=== PATIENT | female | born 1965 | race Caucasian/White ===

== ENCOUNTER 2023-12-18 14:03 | Outpatient (REF) | payer OTHER, SELFPAY ==
--- NOTE | ~2023-12-18 | MR_ITS ---
EXAMINATION: MRI FEMUR WITHOUT CONTRAST, RIGHT CLINICAL INFORMATION: Localized swelling mass and lump, pain. Patient reports thigh pain with lump getting better. Lump size of a pea. Symptoms since July 2023. Patient reports pain, history of injury. Patient reports ultrasound at [facility]. COMPARISON: No priors available for comparison. TECHNIQUE: MRI of the right thigh without contrast. Patient refused contrast imaging. FINDINGS: Soft tissue marker positioned posterior to the proximal thigh at the level of the proximal femoral shaft. Underlying the skin marker, is fatty signal in the underlying subcutaneous tissue. No abnormal signal, mass or fluid collection is identified in the underlying subcutaneous tissues, soft tissues or muscle. There is increased signal in the common hamstring tendon origin which could reflect mild tendinosis/deep surface partial tear. The muscles of the thigh otherwise appear unremarkable without evidence of significant edema or tear. The muscles and tendons around the hip and the pelvis are obscured by artifact, not well evaluated. Artifact and inhomogeneous fat saturation limits evaluation of the proximal femur and the pelvis. In the visualized femoral shaft, there is no abnormal edema, fracture or suspicious marrow signal changes identified. No groin lymphadenopathy seen. Partially visualized urinary bladder appears unremarkable. On the coronal sequence of the femurs, there is normal-appearing T1 signal in the left femoral shaft. MR/MR femur RT wo con IMPRESSION: In the area of the soft tissue marker along the posterior aspect of the proximal femur, there is normal signal in the subcutaneous fatty tissue. No abnormal signal, mass or fluid collection is identified in the subcutaneous tissue, soft tissues, muscles. Etiology of the palpable mass has not been identified on the noncontrast study. Clinically correlate. Follow-up imaging for reassessment as clinically warranted. Right common hamstring tendinosis/partial tear. Additional findings and details as above.
== END 2023-12-18 14:04 | disposition home or self-care (01) ==
LOC: HO.MRI 14:03
PROVIDERS: PCP Student in an Organized Health Care Education/Training Program; Visit Provider Student in an Organized Health Care Education/Training Program
DX: R22.41 Localized swelling, mass and lump, right lower limb (principal)
CPT/HCPCS: 73718

== ENCOUNTER 2025-05-17 15:26 | Outpatient (AMB) | payer OTHER, SELFPAY ==
--- NOTE | 2025-05-17 15:33 | A.OFFVIS_ITS ---
Vital Signs 05/17/25 15:40 Height 5 ft 3 in Weight 164 lb BMI 29.0 BP 136/84 Blood Pressure Location Rt brachial Position Sitting Pulse 80 Pulse Source Pulse Oximeter Pulse Oximetry (%) 96 Oxygen Delivery Method Room Air Intake Visit Reasons: Colonoscopy Screening Intake Note: New pt for recall colo screening. Has cardiac hx. CC: Pt reports her last colo was performed in [place] ~ 4 years ago. Pt states that she had previously experienced some difficulties with constipation and hemorrhoids. Pt has been making dietary and lifestyle changes and incorporating fiber which she states has helped. Pt does still have some concern pertaining to the hemorrhoids however as they still bother her intermittently. Accompanied by: Self / Same As Patient Allergies adhesive Allergy (Unknown, Verified 05/06/25 14:43) Rash hydrochlorothiazide Allergy (Unknown, Verified 05/06/25 14:43) Rash Opioids - Morphine Analogues Adverse Reaction (Unknown, Verified 05/06/25 14:43) Vomiting HPI HPI Colonoscopy Screening: Details: 59 year old? female with past medical history of palpitations, hyperlipidemia, hypertension, asthma is here today for pre colonoscopy screening.? Patient was sent to us by her PCP.? Last colonoscopy was in 2020.? Patient denies any gastrointestinal symptoms in the past or at present.? However she does report history of constipation and hemorrhoids. Doing better with fiber. Denies any family history of CRC.? Denies history of difficulty with sedation or anesthesia in the past.? Negative for history of sleep apnea.? Denies any history of renal, pulmonary, or hepatic disease.??Patient reports that she had history of palpitation and was seen Cardiology. Patient reports that she had normal stress test. No history of infectious? diseases like hepatitis A, B, C, HIV or tuberculosis.? Patient is not on any anticoagulation [facility] Medical History (Updated 05/06/25 @ 14:47 by LEVY Cline) Diverticulum of renal calyx HLD (hyperlipidemia) HTN (hypertension) Palpitations Scoliosis Asthma Surgical History (Updated 05/17/25 @ 15:41 by LEVY Cline) H/O colonoscopy Hx of atrioventricular node ablation History of colposcopy History of ankle surgery delivery delivered Family History (Updated 05/06/25 @ 14:50 by LEVY Cline) Son ADHD Mother Parkinson disease Breast cancer Maternal Grandfather Diabetes Heart disease Father HTN (hypertension) Physical Exam Vital Signs: Last Vital Signs Pulse 80 05/17/25 15:40 BP 136/84 05/17/25 15:40 Pulse Ox 96 05/17/25 15:40 Oxygen Delivery Method Room Air 05/17/25 15:40 BMI result Body Mass Index 29.0 Assessment & Plan Assessment & Plan (1) Screen for colon cancer: Code(s): Z12.11 - Encounter for screening for malignant neoplasm of colon Plan Patient denies any GI, cardiac or respiratory symptoms.? History of constipation and hemorrhoids in the past. Taking fiber daily, no issues currently. Denies any issues with anesthesia in the past.? Denies any history of sleep apnea.? No history infectious diseases in the past or present.? Not on any anticoagulation therapy.? Patient denies any cardiac symptoms however she has seen Cardiology in the past. Had normal stress test. 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 No family history of colon cancer.? Patient denies melena, hematochezia, unintentional weight loss or ribbon like stools.? Discussed at length the pre-procedure,? prep, diet & medications as well as what to expect prior, during and after the procedure.?? Stressed the importance of good bowel prep.? Recommended the use of Vaseline or Calmoseptine OTC & baby wipes with bowel movements to promote comfort.? ?Patient verbalizes understanding and agrees to plan of care.? She was given the opportunity to ask questions and all questions answered.? We will see her after the procedure.? Orders: Referrals GI Procedure Notification Z12.11 - Encounter for screening for malignant neoplasm of colon Medications: New polyethylene glycol 3350 (Miralax) As directed by gastroenterology department at [facility] 238 grams PO ONCE 238 grams 0RF Z12.11 - Encounter for screening for malignant neoplasm of colon bisacodyl (Dulcolax (bisacodyl)) take 4 tabs at noon the day before your colonoscopy 20 mg (4 x 5 mg) PO ONCE 4 tabs 0RF constipation 1 day Z12.11 - Encounter for screening for malignant neoplasm of colon Coding Level of Care Code New Pt Level 3 (56098) Diagnoses Screen for colon cancer Z12.11 Time Spent (min) 40 Comment 30 minutes spent with patient and additional 10 minutes spent reviewing her records
[2025-05-17 15:40] VITALS: BP 136/84; PULSE 80; O2SAT 96; BMI 29.0
--- OUTSIDE RECORDS SUMMARY | 2025-05-17 20:36 | XMS_ITS | Encounter Summary ---
Author Organization [facility] Address [address] [place] [address] Care Team Providers Care Hardwood Floor Layer Name Role Phone Teresita Yi Primary Care Provider [phone] Encounter Details Date Type Department Care Team (Late st Contact Info) Description 03/14/2025 Results Follow-Up [facility] [address] [place] [id number] Mixing Tank Operator: Ilene Sparks NP [address] [place] [phone] Social History Tobacco Use Types Packs/Day Years Used Date Smoking Tobacco: Never Smokeless Tobacco: Never Alcohol Use Standard Drinks/Week Comments Yes 0 (1 standard drink = 0.6 oz pur e alcohol) Comments Unknown Sex and Gender Information Value Date Recorded Sex Assigned at Female 12/10/2024 10:06 AM EDT Legal Sex Female 12:32 PM EDT Gender Identity Female 12/10/2024 10:06 AM EDT Sexual Orientation Straight 03/14/2025 8: 25 AM EDT documented as of this encounter Plan of Treatment Upcoming Encounters Date Type Department Care Team (Late st Contact Info) Description 06/27/2025 4:00 PM EST Follow-Up [facility] [address] [place] [id number] Mixing Tank Operator: Ilene Sparks NP [address] [place] [address] documented as of this encounter Visit Diagnoses Not on filedocumented in this encounter Care Teams Hardwood Floor Layer Relationship Specialty Start Date End Date Teresita Yi [address] [place] [id number] PCP - General 12/10/24 documented as of this encounter
--- OUTSIDE RECORDS SUMMARY | 2025-05-17 20:36 | XMS_ITS | Clinical Summary ---
Author Organization [facility] Address [address] [place] [address] Care Team Providers Care Field Map Editor Name Role Phone Teresita Yi Primary Care Provider [phone] Allergies Active Allergy Reactions Criticality Noted Date Comments Adhesive Tape-Silicones Rash Low 03/05/2024 Hydrochlorothiazide Hives,Rash Low 05/06/2014 Opioids - Morphine Analogues Dizziness,Rash 01/2024 Medications losartan (COZAAR) 50 mg tablet SMARTSI Tablet(s) By Mouth Twice Daily Active dilTIAZem CD (CARDIZEM CD) 300 mg 24 hr capsule SMARTSI Capsule(s) By Mouth Daily 05/17/2024 Active atorvastatin (LIPITOR) 10 mg tablet Active estradioL (ESTRACE) 0.01 % (0.1 mg/gram) vaginal cream Insert 0.5 g into the vagina once a week. 1-2 weekly Active Vagifem 10 mcg tablet Insert 10 mcg into the vagina 2 times a week. 08/18/2024 Active Active Problems Problem Noted Date Diagnosed Date HTN (hypertension) 03/14/2025 Hx of atrioventricular node ablation 03/14/2025 Encounters Date Type Department Care Team Description 04/18/2025 3:53 PM EDT - 04/18/2025 11:59 PM EDT Hospital Encounter [facility] [address] [place] [address] Nephrolithiasis Discharge Disposition: Home or Self Care () 03/14/2025 9:30 AM EDT Office Visit [facility] [address] [place] [phone] Support Worker: Ilene Sparks NP Nephrolithiasis (Primary Dx) 03/14/2025 Results Follow-Up [facility] [address] [place] [phone] Support Worker: Ilene Sparks NP from Last 3 Months Social History Tobacco Use Types Packs/Day Years Used Date Smoking Tobacco: Never Smokeless Tobacco: Never Tobacco Cessation:Counseling Given: Not Answered Alcohol Use Standard Drinks/Week Comments Yes 0 (1 standard drink = 0.6 oz pur e alcohol) Comments Unknown Sex and Gender Information Value Date Recorded Sex Assigned at Female 12/10/2024 10:06 AM EDT Legal Sex Female 12:32 PM EDT Gender Identity Female 12/10/2024 10:06 AM EDT Sexual Orientation Straight 03/14/2025 8: 25 AM EDT Last Filed Vital Signs Vital Sign Reading Time Taken Comments Blood Pressure 126/92 03/14/2025 9:23 AM EDT Pulse 61 03/14/2025 9:23 AM EDT Temperature - - Respiratory Rate - - Oxygen Saturation - - Inhaled Oxygen Concentration - - Weight - - Height - - Body Mass Index - - Plan of Treatment Upcoming Encounters Date Type Department Care Team (Late st Contact Info) Description 06/27/2025 4:00 PM EST Follow-Up [facility] [address] [place] [phone] Support Worker: Ilene Sparks NP [address] [place] [phone] Health Maintenance Due Date Last Done Comments Cervical Cancer Screening 1966 Cologuard 1966 Colon Cancer Screening 1966 Colonoscopy 1966 FOBT / Fit Test 1966 HIV Screening 1966 HPV and Pap Smear 1966 Hepatitis C Screening 1966 Pap Smear 1966 Sigmoidoscopy 1966 Hepatitis B Vaccines (1 of 3 - 19+ 3-dose series) 08/29 DTaP,Tdap,and Td Vaccines (1 - Tdap) 1988 Pneumococcal Vaccine: 50+ Years (1 of 1 - PCV) 017 Zoster Vaccines (1 of 2) 2016 Alcohol/Substance Use Screening 07/28/2024 Depression Screening and Follow-Up 07/28/2024 Social Drivers of Health Annual Screening 07/28/2024 COVID-19 Vaccine (1 - season) 2025 Influenza Vaccine (#1) 2025 Mammogram 03/12/2026 03/12/2024 Basic Metabolic Panel 03/14/2026 03/14/2025 RSV Vaccine (60+ years old a nd patients) (1 - 1-dose 75+ series) 2041 Procedures * Due to [employer] law, this organization might not be sharing negative HIV tests. Procedure Name Priority Date/Time Associated Diagnosis Comments CT KIDNEYS/URETER/BLAD ZEENAT Routine 04/18/2025 3:57 PM EDT Nephrolithiasis AMB EXTERNAL XR ABDOMEN, OUTSIDE RESULT 03/16/2025 RENAL FUNCTION PANEL Routine 03/14/2025 10:11 AM EDT Nephrolithiasis from Last 3 Months Results * Due to [employer] law, this organization might not be sharing negative HIV tests. * CT Kidneys/Ureter/Bladder (04/18/2025 3:57 PM EDT) Anatomical Region Laterality Modality Body Computed Tomogra phy 04/18/2025 5:01 PM EDT Impressions 04/21/2025 2:04 PM EDT 1. 1 cm nonobstructing right interpolar renal calculus. 2. Incidental 2 mm punctate nodule in the left lung base. In a low risk patient, this nodule does not require dedicated follow up with CT chest per current guidelines (see detailed guidelines below). Guidelines Pulmonary Nodules (All types) Nodule size = (avg of long and short axis) Definition Of High risk - history of malignancy or smoking; immunocompromised; suspicious lesion features. Single Nodule <6mm Low Risk: No routine follow-up High Risk: CT follow-up in 12 mos (optional)* 6-8mm Low Risk: CT 6-12mos, then consider CT at 18-24 mos High Risk: CT 6-12mos, then CT at 18-24 mos >8mm Low and High Risk: CT, PET-CT, or bx at 3 mos Common scenarios: 1. Incidental nodule <6mm on cervical spine or abdominal ct. No longer needs completion chest ct routinely (see below exception) 2. Patient returns for 3 month follow-up based on old guidelines &. Switch to new guidelines. *Nodules <6 mm do not require routine follow-up, but certain patients at high risk with suspicious nodule morphology, upper lobe location, or both may warrant 12- month follow-up. These are not applicable to patients with malignancy or immunocompromised. Patients with malignancy can receive a shorter term follow-up (in 3-6 months). References: 1-Andreas H, Nuno DP, Bartolo JM, Chad KS, Michael AN, Ventura JR, Candy AC, Jacinto Y, Tani CA, Abbie M, William GD, Moises CM, Lester WD, Van Schnigel PE, Madhuri AA. Guidelines for Management of Incidental Pulmonary Nodules Detected on CT Images: From the Fleischner Society 2017. Radiology. 2017 Aug 23:810398. doi: 10.1148/radiol.1764048890. PubMed PMID: [id number] If this radiology report contains a blank impression section, it is an incomplete radiology report. Please contact the interpreting radiologist or applicable radiology division as soon as possible to obtain the completed interpretation. Workstation ID: [id number] Up-to-date CT equipment and radiation dose reduction techniques were employed. CTDIvol: 3.2 mGy. DLP: 137 mGy-cm. Narrative 04/21/2025 2:04 PM EDT EXAMINATION: CT KIDNEYS/URETER/BLADDER INDICATION: 59-year-old with nephrolithiasis, assess stone burden TECHNIQUE: Images of the abdomen and pelvis were obtained without oral or intravenous contrast. Coronal and sagittal reformats were generated. COMPARISON: None available. FINDINGS: Lack of intravenous contrast decreases sensitivity for the detection of focal lesions and vascular pathology. LOWER THORAX: Mild bibasilar atelectasis. There is a punctate 2 mm nodule in the left lung base (series 904, image 144) KIDNEYS/URETERS/BLADDER: No hydronephrosis or obvious solid renal mass. Nonobstructing right interpolar renal calculus or conglomerate of stones measuring approximately 9 mm x 10 mm (series 904, image 239). No additional nephrolithiasis. Unremarkable bladder. HEPATOBILIARY: No focal hepatic lesions. No biliary ductal dilatation. Normal gallbladder. SPLEEN: No splenomegaly. PANCREAS: No ductal dilatation or peripancreatic inflammation. ADRENAL GLANDS: No adrenal nodules. GI TRACT: No distention or wall thickening. Normal appendix. PERITONEUM/RETROPERITONEUM: No ascites or free air. LYMPH NODES: No lymphadenopathy. VESSELS: Mild atherosclerotic disease of the abdominal aorta and its major branches. PELVIC ORGANS: Unremarkable. BONES AND SOFT TISSUES: Multilevel mild to moderate degenerative changes of the imaged spine, most significant at the L5-S1 level, with grade 1 anterolisthesis of L5 on S1. Resulting Agency Comment [id number] Procedure Note Judie Mcdonough MD - 04/21/2025 EXAMINATION: CT KIDNEYS/URETER/BLADDER INDICATION: 59-year-old with nephrolithiasis, assess stone burden TECHNIQUE: Images of the abdomen and pelvis were obtained without oral orintravenous contrast. Coronal and sagittal reformats were generated. COMPARISON: None available. FINDINGS: Lack of intravenous contrast decreases sensitivity for thedetection of focal lesions and vascular pathology. LOWER THORAX: Mild bibasilar atelectasis. There is a punctate 2 mm nodulein the left lung base (series 904, image 144) KIDNEYS/URETERS/BLADDER: No hydronephrosis or obvious solid renal mass.Nonobstructing right interpolar renal calculus or conglomerate of stonesmeasuring approximately 9 mm x 10 mm (series 904, image 239). Noadditional nephrolithiasis. Unremarkable bladder. HEPATOBILIARY: No focal hepatic lesions. No biliary ductal dilatation.Normal gallbladder. SPLEEN: No splenomegaly. PANCREAS: No ductal dilatation or peripancreatic inflammation. ADRENAL GLANDS: No adrenal nodules. GI TRACT: No distention or wall thickening. Normal appendix. PERITONEUM/RETROPERITONEUM: No ascites or free air. LYMPH NODES: No lymphadenopathy. VESSELS: Mild atherosclerotic disease of the abdominal aorta and its majorbranches. PELVIC ORGANS: Unremarkable. BONES AND SOFT TISSUES: Multilevel mild to moderate degenerative changesof the imaged spine, most significant at the L5-S1 level, with grade 1anterolisthesis of L5 on S1. IMPRESSION: 1. 1 cm nonobstructing right interpolar renal calculus. 2. Incidental 2 mm punctate nodule in the left lung base. In a low riskpatient, this nodule does not require dedicated follow up with CT chestper current guidelines (see detailed guidelines below). Guidelines Pulmonary Nodules (All types) Nodule size = (avg of long and short axis) Definition Of High risk - history of malignancy or smoking;immunocompromised; suspicious lesion features. Single Nodule <6mm Low Risk: No routine follow-up High Risk: CT follow-up in 12 mos (optional)* 6-8mm Low Risk: CT 6-12mos, then consider CT at 18-24 mos High Risk: CT 6-12mos, then CT at 18-24 mos >8mm Low and High Risk: CT, PET-CT, or bx at 3 mos Common scenarios: 1. Incidental nodule <6mm on cervical spine or abdominal ct. No longerneeds completion chest ct routinely (see below exception) 2. Patient returns for 3 month follow-up based on old guidelines &. Switchto new guidelines. *Nodules <6 mm do not require routine follow-up, but certain patients athigh risk with suspicious nodule morphology, upper lobe location, or bothmay warrant 12- month follow-up. These are not applicable to patients with malignancy orimmunocompromised. Patients with malignancy can receive a shorter termfollow-up (in 3-6 months). References: 1-Andreas H, Nuno DP, Bartolo JM, Chad KS, Michael AN, Ventura JR, Candy AC,Jacinto Y, Tani CA, Abbie M, William GD, Moises CM, Lester WD, Michael PE, Madhuri AA. Guidelines for Management of Incidental Pulmonary NodulesDetected on CT Images: From the Fleischner Society 2017. Radiology. 2017Feb 23:816765. doi: 10.1148/radiol.[id number]. PubMed PMID: [id number] If this radiology report contains a blank impression section, it is anincomplete radiology report. Please contact the interpreting radiologistor applicable radiology division as soon as possible to obtain thecompleted interpretation. Workstation ID: [id number] Up-to-date CT equipment and radiation dose reduction techniques wereemployed. CTDIvol: 3.2 mGy. DLP: 137 mGy-cm. us Ilene Small PHARMACEUTICAL PLANT OPERATOR IMG CT PROCEDURES Final Result * XR Abdomen, Outside Result (03/16/2025) Anatomical Region Laterality Modality Other 03/16/2025 us Onbase Scan Cuong AMB EXTERNAL RESULT PROCEDURE S Final Result * Renal Function Panel (03/14/2025 10:11 AM EDT) NA 141 135 - 145 mmol/L 03/14/2025 11:22 AM EDT [facility] K 4.3 3.5 - 5.3 mmol/L 03/14/2025 11:22 AM EDT [facility] Cl 103 98 - 107 mmol/L 03/14/2025 11:22 AM EDT [facility] CO2 25 22 - 32 mmol/L 03/14/2025 11:22 AM EDT [facility] Anion Gap 13 5 - 15 03/14/2025 11:22 AM EDT [facility] Glucose 97 65 - 99 mg/dL 03/14/2025 11:22 AM EDT [facility] BUN 19 7 - 23 mg/dL 03/14/2025 11:22 AM EDT [facility] Creatinine 1.05 0.50 - 1.20 mg/dL 03/14/2025 11:22 AM EDT [facility] Calcium 9.6 8.6 - 10.5 mg/dL 03/14/2025 11:22 AM EDT [facility] Phosphorus 3.5 2.5 - 4.5 mg/dL 03/14/2025 11:22 AM T [facility] Albumin 4.4 3.5 - 5.2 g/dL 03/14/2025 11:22 AM EDT [facility] eGFR 62 >=60 mL/min/1. 73m2 03/14/2025 11:22 AM EDT [facility] Comment:The estimated glomer ular filtration rate (eGFR) is calculated using a new formula developed by the NKF-ASN task force to eliminate race-based correction factors. The new formula uses serum/plasma creatinine, age, and gender to determine eGFR. A value below 60mls/min might indicate kidney disease and will be flagged. For additional information, see Hidalgo et al, Am J Kidney Dis. 2021;79(2):268- 288, A Unifying Approach for GFR estimation: Recommendations of the NKF-ASN Task Force on Reassessing the Inclusion of Race in Diagnosing Kidney Disease . Blood Structure of peripheral vein / Unknown Venipuncture / Unknown 03/14/2025 10:11 AM EDT 03/14/2025 10:14 AM EDT us Ilene Thomson PHARMACEUTICAL PLANT OPERATOR LAB BLOOD ORDERABLES Final Resu lt [facility] [address] [place] [address], from Last 3 [place] [address] [facility] Care Teams Field Map Editor Relationship Specialty Start Date End Date Teresita Yi [address] [place] [id number] PCP - General 12/10/24
== END 2025-05-18 08:41 | disposition home or self-care (01) ==
PROVIDERS: PCP Student in an Organized Health Care Education/Training Program; Visit Provider Nurse Practitioner Family
DX: Z01.818 Encounter for other preprocedural examination (principal); Z12.11 Encounter for screening for malignant neoplasm of colon
CPT/HCPCS: S0285